=== PATIENT | male | born 1970 | race Caucasian/White ===

== ENCOUNTER 2017-04-23 09:20 | Emergency (ER) | payer SELFPAY ==
[~2017-04-23] VITALS: Ht 172.7 cm; Wt 92.0 kg
[2017-04-23 09:30] VITALS: BP 111/64; PULSE 77; RESP 18; TEMP 98.1; O2SAT 98
[2017-04-23] MEDS ORDERED: IBUPROFEN 800 MG TAB PO ONE (09:45)
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
== END 2017-04-23 10:03 | disposition home or self-care (01) ==
LOC: NEPD 09:20
DX: S39.012A Strain of muscle, fascia and tendon of lower back, initial encounter (principal); S46.912A Strain of unspecified muscle, fascia and tendon at shoulder and upper arm level, left arm, initial encounter; F17.210 Nicotine dependence, cigarettes, uncomplicated; F12.90 Cannabis use, unspecified, uncomplicated; F10.120 Alcohol abuse with intoxication, uncomplicated; V18.4XXA Pedal cycle driver injured in noncollision transport accident in traffic accident, initial encounter; Y93.55 Activity, bike riding; Y92.410 Unspecified street and highway as the place of occurrence of the external cause
CPT/HCPCS: 99282

== ENCOUNTER 2017-09-09 19:08 | Emergency (ER) | payer OTHER ==
[~2017-09-09] VITALS: Ht 175.3 cm; Wt 87.0 kg
[2017-09-09 19:23] VITALS: BP 147/98; PULSE 77; RESP 18; TEMP 98; O2SAT 98
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
[2017-09-09 23:31] VITALS: RESP 18
[2017-09-10 02:15] VITALS: BP 153/71; PULSE 77; RESP 18
[2017-09-10 06:22] VITALS: BP 167/79; PULSE 86; RESP 18
[2017-09-10 11:24] VITALS: BP 133/73; PULSE 72; RESP 18; O2SAT 95
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
== END 2017-09-10 16:27 | disposition home or self-care (01) ==
LOC: NEPJ 19:08
DX: F43.20 Adjustment disorder, unspecified (principal); J44.9 Chronic obstructive pulmonary disease, unspecified; F17.200 Nicotine dependence, unspecified, uncomplicated; Z88.0 Allergy status to penicillin
CPT/HCPCS: 99283